=== PATIENT | female | born 1955 | race Two or more races ===

== ENCOUNTER 2019-11-15 12:12 | Emergency (ER) | payer MEDICAID ==
[~2019-11-15] VITALS: Ht 157.5 cm; Wt 65.3 kg
[~2019-11-15 12:12] MED LIST: BENA10TA74 PO; ESTR-7 PO; FAMO20TA80 PO; LORA10TA7 PO; Nitroglycerin SL; PRED5TAB48 PO; SIMV-49 PO
--- NOTE | 2019-11-15 12:19 | NUR ---
COUGH X2 WKS, PRODUCTIVE GREEN SPUTUM, NO SOB. PATIENT A/OX4, BREATHING EVEN AND UNLABORED, NO SOB NOTED, SITTING ON THE CHAIR NAD NOTED.
--- NOTE | 2019-11-15 12:20 | NUR ---
SEEN BY DR. STONE FOR EVAL.
--- NOTE | 2019-11-15 12:28 | NUR ---
[facility] AT BEDSIDE FOR CXR.
--- NOTE | 2019-11-15 12:43 | NUR ---
Patient discharged to home in stable condition. Written and verbal after care instructions given. Patient verbalizes understanding of instruction.
[2019-11-15 12:44] VITALS: BP 140/71
== END 2019-11-15 12:45 | disposition home or self-care (01) ==
LOC: ER 12:13
DX: R05 Cough (principal); I10 Essential (primary) hypertension; Z88.8 Allergy status to other drugs, medicaments and biological substances; Z79.899 Other long term (current) drug therapy
CPT/HCPCS: 71045-TC